=== PATIENT | male | born 1975 | race Caucasian/White ===

== ENCOUNTER 2024-01-29 19:53 | Emergency (ER) | payer OTHER, SELFPAY ==
[2024-01-29 19:55] VITALS: BP 130/92; BMI 30.4
--- NOTE | 2024-01-29 21:08 | ED.GENMED ---
History of Present Illness
General
Chief Complaint: Extremity Pain (non-traumatic)
Source: patient
Exam Limitations: none
Time Seen by Provider: 01/29/24 20:35
Nursing documentation reviewed up to this point in time: agreed with
Travel History
Have you had any contact with someone who has COVID-19?: No
Do you have any symptoms of coronavirus? Fever > 100 degrees, chills, cough, shortness of breath, sore throat, loss of taste or smell, muscle aches, or headache?: No
History of Present Illness
History of Present Illness:
48-year-old right-handed male with a past medical history as document presents for evaluation after a slip and fall onto right arm. Patient was working on a short stool and slipped and fell backwards landing on his bottom but had his right arm
behind him and fell on right wrist outstretched. He says he has not had pain in the right wrist radiating up towards the elbow since. He says he has some chronic pain in his shoulder and back no worse than usual, no other complaints after the
fall. Says he did not hit his head. Denies neck pain, headache. Denies any pain in his lower extremities and has been ambulatory since the fall. Does not take any blood thinners.
Review of Systems
Review of Systems
All Other Systems: ROS reviewed and negative except as documented in HPI and ROS
Musculoskeletal: Reports joint pain (Right wrist pain)
Phy Exam
Physical Exam
Physical Exam:
General: Awake, alert; no acute distress
Head: Normocephalic, atraumatic
Eyes: Conjunctiva normal
Throat: Airway intact, handling secretions
Neck: Trachea midline, no cervical spine tenderness
Back: No signs of trauma to the back or flank and no tenderness in the thoracic or lumbar spine
Lungs: Breathing comfortably not in distress
Heart: Regular rate
Abd: Soft, non distended, nontender
Neuro: Cranial nerves grossly intact, speech fluid; motor and sensory function is intact radial, median, ulnar nerve distribution right upper extremity
Skin: no rash
Extremities: Patient has no deformity of the right upper extremity; no tenderness in the right shoulder and good range of motion of the right shoulder without significant pain; he has no reproducible tenderness in the right elbow and again full
range of motion without pain; he has tenderness in the anatomic snuffbox of the right wrist as well as tenderness along the distal radius; no tenderness along the distal ulna or in the hand or fingers of the right hand; has a good strong right
radial pulse; left upper extremity and bilateral lower extremities are atraumatic and he is moving the extremities comfortably without pain
Scores
Heart Failure Risk
Heart Failure Risk Score: Not Applicable
Heart Score for Chest Pain Patients
STEMI patient?: Not applicable
Withdrawal Assessment of Alcohol
Withdrawal Assessment Completed?: Not applicable
Course
Orders/Labs/Results
Orders:
Orders
01/29/24 19:58
Forearm, Right 2 View [CR Forearm - Right 2 View] Urgent
Comment:
Reason For Exam: pain
Wrist, Right 3 Views [CR Wrist - Right Min 3 Views] Urgent
Comment:
Reason For Exam: pain
01/29/24 21:14
Splints/Slings/Crut- Treatment ONCE
Vital Signs
Initial and Last Documented VS:
Initial Vital Signs
Temp Pulse Resp BP Pulse Ox
36.8 C 96 16 130/92 99
01/29/24 19:55 01/29/24 19:55 01/29/24 19:55 01/29/24 19:55 01/29/24 19:55
Last Documented Vital Signs
Temp Pulse Resp BP Pulse Ox
36.8 C 96 16 130/92 99
01/29/24 19:55 01/29/24 19:55 01/29/24 19:55 01/29/24 19:55 01/29/24 19:55
MDM/Problems Addressed
Differential Diagnosis Includes:
Fracture, dislocation, sprain
MDM/Problems Addressed:
48-year-old male presents for evaluation after fall off a stool landing on his right wrist outstretched. Vital signs normal. Exam as above. Sent for x-ray of the wrist and forearm in triage�reviewed by me suspect minor nondisplaced distal radial
fracture. Will plan to place in a volar splint, refer to orthopedics for follow-up. Advised regarding follow-up plan, ice, Tylenol/Motrin as needed for pain. He feels comfortable with this plan. All questions answered.
*Radiology
Radiology exam reviewed: preliminary read by ED provider
*Pulse Oximetry
Patient hypoxic: no
*Critical Care Note
Total Time (30-74mins, 75-104mins- exclusive of procedures): Not Applicable
Data Reviewed
Source: patient
ED Attending Note
-
Portions of this chart may have been created with voice recognition software.� Occasional wrong word or��sound alike� substitutions may have occurred due to the inherent limitations of voice recognition software.
Discharge Plan
Departure
Patient Disposition: Home (Routine Discharge)
Date of Disposition: 01/29/24
Time of Disposition: 21:14
Patient with high blood pressure during this ER visit?: No
Discharge Problem:
Injury of right wrist
Instructions: Wrist Fracture (DC)
Prescriptions:
No Action
No Current Medications
0
Referrals:
Radha Givens DO [Family Provider] -
Ernie Calixto MD [Active] - Call in 1-3 days for appt (Orthopedist)
Activity Restrictions/Additional Instructions:
Thank you for visiting the Emergency Department at [facility].
1. Please schedule a follow up appointment as directed. Call first thing tomorrow morning to make an appointment.
2. If indicated, please take your medications as instructed and indicated on discharge paperwork.
3. If any of your symptoms do not improve, or persist, or become more severe within 6-12 hours, please return to the emergency department for further care.
4. Please return to the emergency department if you develop a headache, neck pain/stiffness, fever greater than 100.4F, chest pain, shortness of breath, persistent nausea, vomiting, slurred speech, difficulty walking, numbness/tingling, weakness,
signs of infection or any other symptoms that are worrisome to you.
Please call [phone] if you have any questions.
Interventions
Interventions:
*Risk Screen - Suicide Last Done: 01/29/24 19:55
*Neglect/Abuse Screening Last Done: 01/29/24 19:55
ED- Fall Risk Assessment Last Done: 01/29/24 20:53
*ED COVID-19 Vaccine History Last Done: 01/29/24 19:55
ED-Skin Assessment Last Done: 01/29/24 20:54
ED-Peripheral Vascular Assessment Last Done: 01/29/24 20:54
ED-Musculoskeletal Assessment Last Done: 01/29/24 20:53
Discharge Date and Time
Print Language: BHUTANESE
== END 2024-01-29 21:38 | disposition home or self-care (01) ==
LOC: EMR 19:53
PROVIDERS: EMERGENCY PHYSICIAN Emergency Medicine; FAMILY PHYSICIAN Family Medicine
DX: M25.531 Pain in right wrist (principal); S69.91XA Unspecified injury of right wrist, hand and finger(s), initial encounter; W19.XXXA Unspecified fall, initial encounter
CPT/HCPCS: 99283; 73090; 73110